=== PATIENT | male | born 1940 | race Caucasian/White ===

== ENCOUNTER → 2023-04-25 09:54 | Outpatient (REF) | payer MEDICARE, BC, SELFPAY | LOC: RAD 09:54 | PROVIDERS: ATTENDING PHYSICIAN Student in an Organized Health Care Education/Training Program | DX: R91.8 Other nonspecific abnormal finding of lung field (principal) | CPT/HCPCS: 71046 ==

== ENCOUNTER → 2023-04-29 07:05 | Outpatient (REF) | payer MEDICARE, BC, SELFPAY | LOC: RAD 07:05 | PROVIDERS: ATTENDING PHYSICIAN Student in an Organized Health Care Education/Training Program | DX: J90 Pleural effusion, not elsewhere classified (principal); R93.89 Abnormal findings on diagnostic imaging of other specified body structures | CPT/HCPCS: 71250 ==

== ENCOUNTER → 2023-05-19 09:21 | Outpatient (REF) | payer MEDICARE, BC, SELFPAY ==
[2023-05-19 10:31] LABS: NT-proBNP 1700 pg/ml
[2023-05-19 11:35] LABS: ALT (SGPT) 22 U/L (0-50); AST (SGOT) 30 U/L (17-59); Albumin 3.9 g/dl (3.5-5.0); Alkaline Phosphatase 210 U/L (38-126); Blood Urea Nitrogen 21 mg/dl (9-20); Calcium 9.4 mg/dl (8.4-10.2); Carbon Dioxide 27 mmol/L (22-30); Chloride 100 mmol/L (98-107); Glucose 102 mg/dl (70-99); Potassium 3.6 mmol/L (3.5-5.1); Sodium 139 mmol/L (135-145); Total Bilirubin 1.1 mg/dl (0.2-1.3); Total Protein 7.3 g/dl (6.3-8.2); eGFR > 60.00
[2023-05-19 11:36] LABS: LDH 225 U/L (120-246)
== END ==
LOC: REG 09:21
PROVIDERS: ATTENDING PHYSICIAN Internal Medicine Cardiovascular Disease; FAMILY PHYSICIAN Student in an Organized Health Care Education/Training Program
DX: E85.82 Wild-type transthyretin-related (ATTR) amyloidosis (principal); I48.0 Paroxysmal atrial fibrillation; I50.32 Chronic diastolic (congestive) heart failure; J90 Pleural effusion, not elsewhere classified
CPT/HCPCS: 36415; 80053; 83615; 83880

== ENCOUNTER → 2023-05-20 13:02 | Outpatient (REF) | payer MEDICARE, BC, SELFPAY ==
[2023-05-20 13:25] VITALS: BP 129/78; BP_SYST 78
[2023-05-20 14:09] VITALS: BP 93/83
[2023-05-20 14:58] LABS: Body Fluid Mononuclear 98.1 %; Body Fluid Polymorphonuclear 1.9 %; Body Fluid WBC 1764 /CUMM
[2023-05-20 14:59] LABS: Body Fluid Second Tech AMA
[2023-05-20 15:17] LABS: Body Fluid Glucose 106 mg/dl; Body Fluid LDH 122 U/L; Body Fluid Protein 2.8 g/dl
== END ==
LOC: RADI 13:02
PROVIDERS: ATTENDING PHYSICIAN Internal Medicine Cardiovascular Disease; FAMILY PHYSICIAN Student in an Organized Health Care Education/Training Program
DX: J90 Pleural effusion, not elsewhere classified (principal)
CPT/HCPCS: 88305; 32555; 71045; 82945; 83615; 84157; 87015; 87070; 87205; 88112; 88341; 88342; 89051

== ENCOUNTER → 2023-08-10 08:01 | Outpatient (REF) | payer MEDICARE, BC, SELFPAY ==
[2023-08-10 09:03] LABS: Urine Albumin Trace (Neg - Trace); Urine Bilirubin Negative (Negative); Urine Character Slightly Cloudy (Clear); Urine Color Yellow; Urine Glucose Negative (Negative); Urine Ketone Negative (Negative); Urine Leukocyte 2+ (Negative); Urine Nitrite Negative (Negative); Urine Occult Blood Trace (Negative); Urine Specific Gravity 1.015 (<1.030); Urine Urobilinogen Negative (Neg - 1+)
[2023-08-10 09:43] LABS: Blood Urea Nitrogen 17 mg/dl (9-20); Calcium 9.8 mg/dl (8.4-10.2); Carbon Dioxide 23 mmol/L (22-30); Chloride 106 mmol/L (98-107); Glucose 129 mg/dl (70-99); Potassium 4.6 mmol/L (3.5-5.1); Sodium 143 mmol/L (135-145); eGFR > 60.00
[2023-08-10 09:49] LABS: Urine Bacteria Few (Negative); Urine Red Blood Cell 0-2 /HPF (0-2); Urine White Cell >100 /HPF (0-5)
[2023-08-10 09:51] LABS: NT-proBNP 2230 pg/ml
== END ==
LOC: REG 08:01
PROVIDERS: ATTENDING PHYSICIAN Internal Medicine Cardiovascular Disease; FAMILY PHYSICIAN Physician Assistant
DX: E85.82 Wild-type transthyretin-related (ATTR) amyloidosis (principal); I42.9 Cardiomyopathy, unspecified; I50.42 Chronic combined systolic (congestive) and diastolic (congestive) heart failure; N39.41 Urge incontinence
CPT/HCPCS: 36415; 80048; 81003; 81015; 83880; 87086

== ENCOUNTER → 2023-08-18 09:38 | Outpatient (REF) | payer MEDICARE, BC, SELFPAY | LOC: RAD 09:38 | PROVIDERS: ATTENDING PHYSICIAN Physician Assistant | DX: N39.41 Urge incontinence (principal); R19.09 Other intra-abdominal and pelvic swelling, mass and lump | CPT/HCPCS: 76770 ==

== ENCOUNTER → 2023-08-24 18:06 | Outpatient (REF) | payer MEDICARE, BC, SELFPAY | LOC: CLAB 18:06 | PROVIDERS: ATTENDING PHYSICIAN Specialist | DX: N13.9 Obstructive and reflux uropathy, unspecified (principal); N39.0 Urinary tract infection, site not specified | CPT/HCPCS: 87086 ==

== ENCOUNTER → 2023-08-25 08:55 | Outpatient (REF) | payer MEDICARE, BC, SELFPAY | LOC: REG 08:55 | PROVIDERS: ATTENDING PHYSICIAN Specialist; FAMILY PHYSICIAN Student in an Organized Health Care Education/Training Program | DX: Z12.5 Encounter for screening for malignant neoplasm of prostate (principal) | CPT/HCPCS: 36415; G0103 ==

== ENCOUNTER → 2023-09-30 14:15 | Outpatient (REF) | payer MEDICARE, BC, SELFPAY ==
[2023-09-30 15:41] LABS: Blood Urea Nitrogen 27 mg/dl (9-20); Calcium 9.2 mg/dl (8.4-10.2); Carbon Dioxide 31 mmol/L (22-30); Chloride 100 mmol/L (98-107); Glucose 110 mg/dl (70-99); Potassium 3.6 mmol/L (3.5-5.1); Sodium 138 mmol/L (135-145); eGFR > 60.00
[2023-09-30 15:50] LABS: NT-proBNP 3380 pg/ml
== END ==
LOC: REG 14:15
PROVIDERS: ATTENDING PHYSICIAN Internal Medicine Cardiovascular Disease; FAMILY PHYSICIAN Student in an Organized Health Care Education/Training Program
DX: E85.82 Wild-type transthyretin-related (ATTR) amyloidosis (principal); I50.42 Chronic combined systolic (congestive) and diastolic (congestive) heart failure; I42.9 Cardiomyopathy, unspecified
CPT/HCPCS: 36415; 80048; 83880

== ENCOUNTER → 2024-01-26 07:55 | Outpatient (REF) | payer MEDICARE, BC, SELFPAY ==
[2024-01-26 09:56] LABS: NT-proBNP 1870 pg/ml; Troponin I 0.031 ng/ml
== END ==
LOC: REG 07:55
PROVIDERS: ATTENDING PHYSICIAN Internal Medicine Cardiovascular Disease; FAMILY PHYSICIAN Student in an Organized Health Care Education/Training Program
DX: E85.82 Wild-type transthyretin-related (ATTR) amyloidosis (principal); I50.32 Chronic diastolic (congestive) heart failure
CPT/HCPCS: 36415; 83880; 84484

== ENCOUNTER → 2024-04-06 09:22 | Outpatient (REF) | payer MEDICARE, BC, SELFPAY | LOC: RCS 09:22 | PROVIDERS: ATTENDING PHYSICIAN Internal Medicine Cardiovascular Disease; FAMILY PHYSICIAN Student in an Organized Health Care Education/Training Program | DX: E85.82 Wild-type transthyretin-related (ATTR) amyloidosis (principal) | CPT/HCPCS: 93306; 93356 ==

== ENCOUNTER → 2024-11-07 10:49 | Outpatient (REF) | payer MEDICARE, BC, SELFPAY ==
[2024-11-07 11:32] LABS: Hematocrit 38.5 % (39.0-52.0); Hemoglobin 13.0 g/dL (13.0-18.0); Mean Corp Hgb Conc. 33.8 g/dL (33.0-37.0); Mean Corpuscular Volume 91.4 fL (80.0-94.0); Nucleated Red Blood Cells % 0 % (-); Platelet Count 198 10^3/uL (130-400); Red Cell Dist. Width 15.0 % (11.5-14.5)
[2024-11-07 11:58] LABS: Troponin I 0.029 ng/ml
[2024-11-07 12:04] LABS: ALT (SGPT) 19 U/L (0-50); AST (SGOT) 22 U/L (17-59); Albumin 4.4 g/dl (3.5-5.0); Alkaline Phosphatase 206 U/L (38-126); Blood Urea Nitrogen 19 mg/dl (9-20); Calcium 9.8 mg/dl (8.4-10.2); Carbon Dioxide 26 mmol/L (22-30); Chloride 103 mmol/L (98-107); Glucose 105 mg/dl (70-99); HDL Cholesterol 47 mg/dl; LDL Cholesterol, Calculated 38 mg/dl; Potassium 3.9 mmol/L (3.5-5.1); Sodium 138 mmol/L (135-145); Total Protein 7.6 g/dl (6.3-8.2); Very Low Density Lipoprotein 13 mg/dl (0-30); eGFR > 60.00
== END ==
LOC: REG 10:49
PROVIDERS: ATTENDING PHYSICIAN Internal Medicine Cardiovascular Disease; FAMILY PHYSICIAN Student in an Organized Health Care Education/Training Program
DX: E85.82 Wild-type transthyretin-related (ATTR) amyloidosis (principal); I50.32 Chronic diastolic (congestive) heart failure; E78.5 Hyperlipidemia, unspecified
CPT/HCPCS: 36415; 80053; 80061; 83880; 84443; 84484; 85025

== ENCOUNTER → 2024-11-08 11:56 | Outpatient (REF) | payer MEDICARE, BC, SELFPAY ==
[2024-11-08 12:26] LABS: Urine Character Clear (Clear)
[2024-11-08 12:35] LABS: Urine Red Blood Cell 0-2 /HPF (0-2); Urine White Cell 16-20 /HPF (0-5)
== END ==
LOC: REG 11:56
PROVIDERS: ATTENDING PHYSICIAN Internal Medicine Cardiovascular Disease; FAMILY PHYSICIAN Student in an Organized Health Care Education/Training Program
DX: E85.82 Wild-type transthyretin-related (ATTR) amyloidosis (principal); I50.32 Chronic diastolic (congestive) heart failure; E78.5 Hyperlipidemia, unspecified
CPT/HCPCS: 81003; 81015

== ENCOUNTER → 2025-02-28 12:27 | Outpatient (REF) | payer MEDICARE, BC, SELFPAY | LOC: RAD 12:27 | PROVIDERS: ATTENDING PHYSICIAN Internal Medicine; FAMILY PHYSICIAN Student in an Organized Health Care Education/Training Program; REFERRING PHYSICIAN Internal Medicine Cardiovascular Disease | DX: K62.5 Hemorrhage of anus and rectum (principal); K59.00 Constipation, unspecified | CPT/HCPCS: 74176 ==